=== PATIENT | male | born 1935 | race Caucasian/White ===

== ENCOUNTER 2018-06-13 10:51 | Emergency (ER) | payer MEDICARE ==
[~2018-06-13] VITALS: Ht 170.2 cm; Wt 90.7 kg
[~2018-06-13 10:51] MED LIST: ATOR10 PO; HYDCHL12.5; INSULANPEN; METF500C PO; Vitamin D400 UNI1; Zestril40 MG PO
[2018-06-13] MEDS ORDERED: Norco 5-325 Ta1 EACH PO (12:07)
== END 2018-06-13 12:14 | disposition home or self-care (01) ==
LOC: ER 10:51
DX: S22.42XA Multiple fractures of ribs, left side, initial encounter for closed fracture (principal); W01.198A Fall on same level from slipping, tripping and stumbling with subsequent striking against other object, initial encounter; Z88.5 Allergy status to narcotic agent; Z79.899 Other long term (current) drug therapy; Z79.84 Long term (current) use of oral hypoglycemic drugs; Z79.4 Long term (current) use of insulin; E11.9 Type 2 diabetes mellitus without complications; I10 Essential (primary) hypertension; Z87.891 Personal history of nicotine dependence
CPT/HCPCS: 71101; 99283-25

== ENCOUNTER 2018-09-02 05:15 | Emergency (ER) | payer MEDICARE ==
[~2018-09-02] VITALS: Ht 175.3 cm; Wt 90.7 kg
[~2018-09-02 05:15] MED LIST changes: +Norco 5-325 Ta1 EACH PO
[2018-09-02 05:50] LABS: Calcium, Ionized (POC) 1.16 mmol/L (1.10-1.46); Chloride (POC) 105 mmol/L (98-108); Creatinine (POC) 1.3 mg/dL (0.8-1.3); Glucose (ISTAT POC) 194 mg/dL (70-99); Hemoglobin (POC) 11.6 g/dL (13.5-17.5); Potassium (POC) 4.3 mmol/L (3.5-5.5); Sodium (POC) 140 mmol/L (135-148); Total CO2 (POC) 22 mmol/L (21-32)
[2018-09-02 05:59] LABS: BASOPHILS ABSOLUTE AUTO 0.08 K/mm3 (0.00-0.23); BASOPHILS PERCENT AUTO 1 % (0-2); EOSINOPHILS ABSOLUTE AUTO 0.37 K/mm3 (0.00-0.68); EOSINOPHILS PERCENT AUTO 3 % (0-6); Hematocrit 35.3 % (37.0-53.0); Hemoglobin 11.7 g/dL (13.5-17.5); IMMATURE GRAN PERCENT AUTO 2 % (0-1); LYMPHOCYTES ABSOLUTE AUTO 2.95 K/mm3 (0.84-5.20); LYMPHOCYTES PERCENT AUTO 22 % (21-46); MONOCYTES ABSOLUTE AUTO 1.08 K/mm3 (0.16-1.47); MONOCYTES PERCENT AUTO 8 % (4-13); Mean Corpuscular HGB 31.5 pg (26.0-34.0); Mean Corpuscular HGB Conc 33.1 g/dL (31.5-36.5); Mean Corpuscular Volume 95 fL (80-100); Mean Platelet Volume 11.4 fL (9.1-12.4); NEUTROPHILS ABSOLUTE AUTO 8.66 K/mm3 (1.96-9.15); NEUTROPHILS PERCENT AUTO 65 % (41-73); Platelet Count 149 K/mm3 (150-400); RDW Coefficient Variation 14.5 % (11.7-14.2); RDW Standard Deviation 48.5 fL (35.1-46.3); Red Blood Cell Count 3.72 M/mm3 (4.30-5.90); White Blood Cell Count 13.34 K/mm3 (4.00-11.30)
[2018-09-02] MEDS ORDERED: Lantus100 UNIT/1 SC (06:05)
[2018-09-02] MEDS ORDERED: Metformin HCl1000 MG PO (06:05)
[2018-09-02] MEDS ORDERED: Hydrochloroth12.5 MG PO (06:07)
[2018-09-02 06:20] LABS: Troponin I <0.015 ng/mL (0.000-0.040)
[2018-09-02 06:21] LABS: Alanine Aminotransfer (ALT/SGP 20 U/L (12-78); Albumin, Blood 3.7 g/dL (3.4-5.0); Albumin/Globulin Ratio 1.5 (0.8-1.8); Alk Phos 67 U/L (50-136); Anion Gap 9 mmol/L (6-16); Aspartate Aminotrans (AST/SGOT 16 U/L (12-37); Bilirubin, Total 0.7 mg/dL (0.1-1.0); Blood Urea Nitrogen 22 mg/dL (8-24); Bun/Creatinine Ratio 17.6 (12.0-20.0); CO2, Blood 22 mmol/L (21-32); Calcium, Blood 8.7 mg/dL (8.5-10.1); Chloride, Blood 109 mmol/L (98-108); Creatinine, Blood 1.25 mg/dL (0.60-1.20); Globulin, Blood 2.4 g/dL (2.2-4.0); Glomerular Filtration Rate 58 (60-); Glucose, Blood 188 mg/dL (70-99); Potassium, Blood 4.2 mmol/L (3.5-5.5); Sodium, Blood 140 mmol/L (136-145); Total Protein, Blood 6.1 g/dL (6.4-8.2)
[2018-09-02] MEDS ORDERED: FAMO20 PO (07:23)
[2018-09-02 07:50] LABS: Source, Urine Clean Catch
[2018-09-02 07:52] LABS: Bilirubin, Urine Neg (Neg); Blood, Urine 5+ (Neg); Glucose Qualitative, Urine Neg (Neg); Ketones, Urine 2+ (Neg); Leukocyte Esterase, Urine Neg (Neg); Nitrite, Urine Neg (Neg); Protein, Urine 2+ (Neg); Urobilinogen, Urine NORM (Normal)
[2018-09-02 08:04] LABS: Appearance, Urine Hazy (Clear); Color, Urine Yellow (P-Yellow)
[2018-09-02 08:05] LABS: Red Blood Cells, Urine TNTC /hpf (0-2); Squamous Epithelial Cells Few /hpf (Few); White Blood Cells, Urine Not Seen /hpf (0-5)
[2018-09-02 08:06] LABS: Bacteria Not Seen /hpf; Transitional Epithelial Cells Few /hpf ({null, 0-Rare})
[2018-09-02 08:07] LABS: Granular Casts 0-2 /lpf ({null, 0}); Renal Epithelial Rare /hpf ({null, 0-Rare})
[2018-09-02] MEDS ORDERED: Zofran4 MG PO (09:06)
[2018-09-02] MEDS ORDERED: HYDR1TAB94 PO (09:06)
[2018-09-02] MEDS ORDERED: KETO10 PO (09:06)
== END 2018-09-02 09:18 | disposition home or self-care (01) ==
LOC: ER 05:15
PROVIDERS: Emergency Medicine
DX: N13.2 Hydronephrosis with renal and ureteral calculous obstruction (principal); Z88.5 Allergy status to narcotic agent; Z79.899 Other long term (current) drug therapy; Z79.4 Long term (current) use of insulin; E11.9 Type 2 diabetes mellitus without complications; I10 Essential (primary) hypertension; Z87.891 Personal history of nicotine dependence
CPT/HCPCS: 71275; 74174; 80047; 80053; 81001; 82947; 83690; 84484; 85014; 85025; 93005; 93010; 96361; 96374-59; 96375-59; 99284-25; J1200; J1885; J2405; J7030; Q9967

== ENCOUNTER → 2020-09-04 | Outpatient (CLI) | payer MEDICARE ==
[~2020-09-04] MED LIST changes: +ASPIR 8181 M1 PO; -ATOR10 PO; +ATOR20 PO; +FAMO20 PO; +HYDR1TAB94 PO; +Hydrochloroth12.5 MG PO; +KETO10 PO; +Lantus100 UNIT/1 SC; +Metformin HCl1000 MG PO; +TRAM50 PO; +Zofran4 MG PO
== END | disposition home or self-care (01) ==
LOC: PLD 14:17 → LAB SHORT 14:17
DX: L28.1 Prurigo nodularis (principal)
CPT/HCPCS: 88305; 88312

== ENCOUNTER 2020-11-29 14:50 | Observation (INO) | payer MEDICARE ==
[~2020-11-29] VITALS: Ht 170.2 cm; Wt 92.0 kg
[~2020-11-29 14:50] MED LIST changes: -ASPIR 8181 M1 PO; -TRAM50 PO
[2020-11-29 15:24] LABS: BASOPHILS ABSOLUTE AUTO 0.05 K/mm3 (0.00-0.23); BASOPHILS PERCENT AUTO 1 % (0-2); EOSINOPHILS ABSOLUTE AUTO 0.21 K/mm3 (0.00-0.68); EOSINOPHILS PERCENT AUTO 3 % (0-6); Hematocrit 35.6 % (37.0-53.0); Hemoglobin 11.7 g/dL (13.5-17.5); IMMATURE GRAN ABSOLUTE AUTO 0.05 K/mm3 (0.00-0.10); IMMATURE GRAN PERCENT AUTO 1 % (0-1); LYMPHOCYTES ABSOLUTE AUTO 2.27 K/mm3 (0.84-5.20); LYMPHOCYTES PERCENT AUTO 33 % (21-46); MONOCYTES ABSOLUTE AUTO 0.71 K/mm3 (0.16-1.47); MONOCYTES PERCENT AUTO 10 % (4-13); Mean Corpuscular HGB 31.5 pg (26.0-34.0); Mean Corpuscular HGB Conc 32.9 g/dL (31.5-36.5); Mean Corpuscular Volume 96 fL (80-100); NEUTROPHILS ABSOLUTE AUTO 3.66 K/mm3 (1.96-9.15); NEUTROPHILS PERCENT AUTO 53 % (41-73); NRBC ABSOLUTE 0.02 K/mm3 (0.00-0.02); NRBC Auto 0.3 /100 WBC (0.0-0.2); Platelet Count 140 K/mm3 (150-400); RDW Coefficient Variation 17.2 % (11.7-14.2); RDW Standard Deviation 58.8 fL (35.1-46.3); Red Blood Cell Count 3.71 M/mm3 (4.30-5.90); White Blood Cell Count 6.95 K/mm3 (4.00-11.30)
[2020-11-29 15:48] LABS: Troponin I <0.015 ng/mL (0.000-0.040)
[2020-11-29 15:49] LABS: Alanine Aminotransfer (ALT/SGP 28 U/L (12-78); Albumin, Blood 3.8 g/dL (3.4-5.0); Albumin/Globulin Ratio 1.1 (0.8-1.8); Alk Phos 66 U/L (50-136); Anion Gap 6 mmol/L (6-16); Aspartate Aminotrans (AST/SGOT 11 U/L (12-37); Bilirubin, Total 0.5 mg/dL (0.1-1.0); Blood Urea Nitrogen 26 mg/dL (8-24); CO2, Blood 26 mmol/L (21-32); Calcium, Blood 9.4 mg/dL (8.5-10.1); Chloride, Blood 110 mmol/L (98-108); Creatinine, Blood 1.63 mg/dL (0.60-1.20); Globulin, Blood 3.6 g/dL (2.2-4.0); Glomerular Filtration Rate 43 (60-); Glucose, Blood 189 mg/dL (70-99); Sodium, Blood 142 mmol/L (136-145); Total Protein, Blood 7.4 g/dL (6.4-8.2)
[2020-11-29] MEDS ORDERED: TRAM50 PO (20:14)
--- NOTE | 2020-11-29 21:29 | NUR ---
BIOINFORMATICS PROGRAMMER GAVE INFORMATION TO LOOK IN CHART FOR ADMISSION TO PCU UNIT
--- NOTE | 2020-11-30 02:48 | NUR ---
PATIENT IS ALERT AND ORIENTATED, ABLE TO MAKE NEEDS KNOWN, ADMISSION FROM ED TONIGHT, DEMONSTRATED HOW TO USE CALL LIGHT, USES URINAL AT BEDSIDE, BED ALARM WAS INITIATED PATIENT REPORTED MULTIPLE FALLS AT HOME, PATIENT EXPRESSED HE DOESN'T WANT A BLOOD TRANSFUSION AND/OR BLOOD PRODUCTS IF NEEDED DECLINE TO CONSENT IS IN THE CHART, PATIENT HAS HIS RED FLIP CELL PHONE AT HE BEDSIDE, PANTS, BELT, SHOES, SOCKS ON THE CHAIR. PATIENT IS PLEASANT, FOLLOWS COMMANDS AND VERY ACTIVE IN HIS CARE, PROVIDES GREAT DETAIL IS DIABETES AND HOW HE FOLLOWS A VERY STRICT DIET. WILL CONTINUE TO MONITOR.
[2020-11-30 07:34] LABS: BASOPHILS ABSOLUTE AUTO 0.04 K/mm3 (0.00-0.23); BASOPHILS PERCENT AUTO 1 % (0-2); EOSINOPHILS ABSOLUTE AUTO 0.36 K/mm3 (0.00-0.68); EOSINOPHILS PERCENT AUTO 7 % (0-6); Hematocrit 32.4 % (37.0-53.0); IMMATURE GRAN ABSOLUTE AUTO 0.04 K/mm3 (0.00-0.10); IMMATURE GRAN PERCENT AUTO 1 % (0-1); LYMPHOCYTES ABSOLUTE AUTO 1.74 K/mm3 (0.84-5.20); LYMPHOCYTES PERCENT AUTO 34 % (21-46); MONOCYTES ABSOLUTE AUTO 0.64 K/mm3 (0.16-1.47); MONOCYTES PERCENT AUTO 13 % (4-13); Mean Corpuscular HGB 31.3 pg (26.0-34.0); Mean Corpuscular Volume 92 fL (80-100); NEUTROPHILS ABSOLUTE AUTO 2.24 K/mm3 (1.96-9.15); NEUTROPHILS PERCENT AUTO 44 % (41-73); RDW Coefficient Variation 17.1 % (11.7-14.2); RDW Standard Deviation 55.7 fL (35.1-46.3); Red Blood Cell Count 3.52 M/mm3 (4.30-5.90); White Blood Cell Count 5.06 K/mm3 (4.00-11.30)
[2020-11-30 07:36] LABS: Mean Platelet Volume 10.5 fL (9.1-12.4); Platelet Count 119 K/mm3 (150-400)
[2020-11-30 07:44] LABS: Bun/Creatinine Ratio 15.1 (12.0-20.0); Calcium, Blood 9.1 mg/dL (8.5-10.1); Creatinine, Blood 1.52 mg/dL (0.60-1.20); Potassium, Blood 4.1 mmol/L (3.5-5.5)
--- NOTE | 2020-11-30 12:46 | NUR ---
echocardiogram completed
--- NOTE | 2020-11-30 12:47 | NUR ---
echocardiogram completed
[2020-11-30] MEDS ORDERED: ASPIR 8181 M1 PO (14:06)
--- NOTE | 2020-11-30 14:23 | NUR ---
PT TO DISCHARGE HOME. NO NEW MEDS TO FAX. PT ON ASPIRIN AND WAS EDUCATED REGARDING IT. IV REMOVED NO SS OF INFECTION NOTED. PT TAKEN DOWN BY WC TO TO BE TAKEN HOME.
== END 2020-11-30 14:15 | disposition home or self-care (01) ==
LOC: ER 14:50 → PCU 14:51
PROVIDERS: Nurse Practitioner Acute Care; Physician Assistant; ADMIT Internal Medicine
DX: R07.89 Other chest pain (principal); I48.91 Unspecified atrial fibrillation; I48.92 Unspecified atrial flutter; R53.1 Weakness; R42 Dizziness and giddiness; I10 Essential (primary) hypertension; E78.5 Hyperlipidemia, unspecified; M25.511 Pain in right shoulder; E11.9 Type 2 diabetes mellitus without complications; D64.9 Anemia, unspecified; N28.9 Disorder of kidney and ureter, unspecified; Z88.5 Allergy status to narcotic agent; Z79.4 Long term (current) use of insulin; Z87.891 Personal history of nicotine dependence; Z66 Do not resuscitate
CPT/HCPCS: 36415; 70450; 71046; 80048; 80053; 82947; 83735; 83880; 84484; 85025; 93005; 93010; 93306; 93880; 96372; 97116; 97162; 97530; 99285-25; A9270; G0378; J1644

== ENCOUNTER 2021-05-10 09:58 | Emergency (ER) | payer MEDICARE ==
[~2021-05-10] VITALS: Ht 170.2 cm; Wt 89.8 kg
[~2021-05-10 09:58] MED LIST changes: +ASPIR 8181 M1 PO; +TRAM50 PO
[2021-05-10 11:22] LABS: BASOPHILS ABSOLUTE AUTO 0.04 K/mm3 (0.00-0.23); BASOPHILS PERCENT AUTO 0 % (0-2); EOSINOPHILS ABSOLUTE AUTO 0.01 K/mm3 (0.00-0.68); EOSINOPHILS PERCENT AUTO 0 % (0-6); Hematocrit 32.8 % (37.0-53.0); Hemoglobin 11.1 g/dL (13.5-17.5); IMMATURE GRAN ABSOLUTE AUTO 0.08 K/mm3 (0.00-0.10); IMMATURE GRAN PERCENT AUTO 1 % (0-1); LYMPHOCYTES ABSOLUTE AUTO 0.95 K/mm3 (0.84-5.20); LYMPHOCYTES PERCENT AUTO 8 % (21-46); MONOCYTES PERCENT AUTO 4 % (4-13); Mean Corpuscular HGB 32.8 pg (26.0-34.0); Mean Corpuscular HGB Conc 33.8 g/dL (31.5-36.5); Mean Corpuscular Volume 97 fL (80-100); Mean Platelet Volume 10.9 fL (9.1-12.4); NEUTROPHILS PERCENT AUTO 88 % (41-73); Platelet Count 120 K/mm3 (150-400); RDW Standard Deviation 52.2 fL (35.1-46.3); Red Blood Cell Count 3.38 M/mm3 (4.30-5.90); White Blood Cell Count 12.68 K/mm3 (4.00-11.30)
[2021-05-10 11:51] LABS: Alanine Aminotransfer (ALT/SGP 26 U/L (12-78); Albumin, Blood 3.5 g/dL (3.4-5.0); Albumin/Globulin Ratio 0.9 (0.8-1.8); Alk Phos 72 U/L (50-136); Anion Gap 8 mmol/L (6-16); Aspartate Aminotrans (AST/SGOT 13 U/L (12-37); Bilirubin, Total 0.8 mg/dL (0.1-1.0); Blood Urea Nitrogen 39 mg/dL (8-24); Bun/Creatinine Ratio 22.8 (12.0-20.0); CO2, Blood 24 mmol/L (21-32); Calcium, Blood 9.8 mg/dL (8.5-10.1); Chloride, Blood 104 mmol/L (98-108); Creatinine, Blood 1.71 mg/dL (0.60-1.20); Globulin, Blood 4.1 g/dL (2.2-4.0); Glomerular Filtration Rate 38 (60-); Glucose, Blood 235 mg/dL (70-99); Potassium, Blood 4.2 mmol/L (3.5-5.5); Sodium, Blood 136 mmol/L (136-145); Total Protein, Blood 7.6 g/dL (6.4-8.2); Troponin I <0.015 ng/mL (0.000-0.040)
[2021-05-10 12:01] LABS: Influenza A, PCR NEGATIVE (NEGATIVE); Influenza B, PCR NEGATIVE (NEGATIVE); Resp Syncytial Virus, PCR NEGATIVE (NEGATIVE); SARS-Cov-2 (COVID-19) PCR, MMC NEGATIVE (NEGATIVE)
== END 2021-05-10 14:35 | disposition home or self-care (01) ==
LOC: ER 09:58
PROVIDERS: Emergency Medicine
DX: R07.9 Chest pain, unspecified (principal); Z88.5 Allergy status to narcotic agent; Z79.899 Other long term (current) drug therapy; Z79.4 Long term (current) use of insulin; Z79.82 Long term (current) use of aspirin; E11.9 Type 2 diabetes mellitus without complications; I10 Essential (primary) hypertension; I48.91 Unspecified atrial fibrillation; Z87.891 Personal history of nicotine dependence; Z20.822 Contact with and (suspected) exposure to COVID-19
CPT/HCPCS: 0241U; 36415; 71260; 74160; 80053; 84484; 85025; 93005; 93010; 99284-25; J7120; Q9967

== ENCOUNTER 2021-12-01 07:15 | Emergency (ER) | payer MEDICARE ==
[~2021-12-01] VITALS: Ht 170.2 cm; Wt 80.3 kg
[~2021-12-01 07:15] MED LIST changes: +ELIQUIS5 M2; +METFORMIN ER1000 M2; +METO25ER PO
[2021-12-01] MEDS ORDERED: LISI5 PO (08:29)
[2021-12-01] MEDS ORDERED: INSULANI SC (08:29)
[2021-12-01] MEDS ORDERED: METOPROLOL SUCC25 MG PO (08:29)
[2021-12-01] MEDS ORDERED: METFORMIN HCL500 M3 PO (08:29)
[2021-12-01 08:51] LABS: BASOPHILS ABSOLUTE AUTO 0.04 K/mm3 (0.00-0.23); BASOPHILS PERCENT AUTO 1 % (0-2); EOSINOPHILS PERCENT AUTO 2 % (0-6); Hematocrit 28.9 % (37.0-53.0); Hemoglobin 9.5 g/dL (13.5-17.5); IMMATURE GRAN ABSOLUTE AUTO 0.07 K/mm3 (0.00-0.10); IMMATURE GRAN PERCENT AUTO 2 % (0-1); LYMPHOCYTES ABSOLUTE AUTO 1.05 K/mm3 (0.84-5.20); LYMPHOCYTES PERCENT AUTO 22 % (21-46); MONOCYTES ABSOLUTE AUTO 0.48 K/mm3 (0.16-1.47); MONOCYTES PERCENT AUTO 10 % (4-13); Mean Corpuscular HGB 34.2 pg (26.0-34.0); Mean Corpuscular HGB Conc 32.9 g/dL (31.5-36.5); Mean Corpuscular Volume 104 fL (80-100); Mean Platelet Volume 11.3 fL (9.1-12.4); NEUTROPHILS ABSOLUTE AUTO 2.95 K/mm3 (1.96-9.15); NEUTROPHILS PERCENT AUTO 63 % (41-73); Platelet Count 107 K/mm3 (150-400); RDW Coefficient Variation 15.9 % (11.7-14.2); Red Blood Cell Count 2.78 M/mm3 (4.30-5.90); White Blood Cell Count 4.69 K/mm3 (4.00-11.30)
[2021-12-01 09:12] LABS: Albumin, Blood 3.2 g/dL (3.4-5.0); Albumin/Globulin Ratio 0.8 (0.8-1.8); Bilirubin, Total 0.5 mg/dL (0.1-1.0); Bun/Creatinine Ratio 16.2 (12.0-20.0); Calcium, Blood 10.2 mg/dL (8.5-10.1); Creatinine, Blood 1.54 mg/dL (0.60-1.20); Globulin, Blood 4.1 g/dL (2.2-4.0); Potassium, Blood 4.2 mmol/L (3.5-5.5); Total Protein, Blood 7.3 g/dL (6.4-8.2)
[2021-12-01 09:46] LABS: Source, Urine Clean Catch
[2021-12-01 10:09] LABS: Appearance, Urine Clear (Clear); Bilirubin, Urine Neg (Neg); Blood, Urine Neg (Neg); Color, Urine Yellow (P-Yellow); Glucose Qualitative, Urine Neg (Neg); Ketones, Urine Neg (Neg); Leukocyte Esterase, Urine Neg (Neg); Nitrite, Urine Neg (Neg); Protein, Urine 1+ (Neg); Urobilinogen, Urine NORM (Normal)
[2021-12-01] MEDS ORDERED: OXYC5 PO (10:29)
== END 2021-12-01 10:38 | disposition home or self-care (01) ==
LOC: ER 07:15
PROVIDERS: Emergency Medicine
DX: R07.89 Other chest pain (principal); E11.9 Type 2 diabetes mellitus without complications; I10 Essential (primary) hypertension; Z87.891 Personal history of nicotine dependence; Z79.899 Other long term (current) drug therapy; Z79.4 Long term (current) use of insulin
CPT/HCPCS: 36415; 74177; 80053; 83690; 85025; J2405; J3010; Q9967

== ENCOUNTER 2021-12-10 14:25 | Emergency (ER) | payer MEDICARE ==
[~2021-12-10] VITALS: Ht 170.2 cm; Wt 80.3 kg
[~2021-12-10 14:25] MED LIST changes: +INSULANI SC; +LISI5 PO; +METFORMIN HCL500 M3 PO; +METOPROLOL SUCC25 MG PO; +OXYC5 PO
[2021-12-10] MEDS ORDERED: OXYC5 PO (16:58)
== END 2021-12-10 17:38 | disposition home or self-care (01) ==
LOC: ER 14:25
DX: M54.50 Low back pain, unspecified (principal); S50.01XA Contusion of right elbow, initial encounter; W06.XXXA Fall from bed, initial encounter; E11.9 Type 2 diabetes mellitus without complications; I10 Essential (primary) hypertension; Z87.891 Personal history of nicotine dependence
CPT/HCPCS: 70450; 72125; 72128; 72131; 73080; 99284-25

== ENCOUNTER 2021-12-17 06:00 | Emergency (ER) | payer MEDICARE ==
[~2021-12-17] VITALS: Ht 172.7 cm; Wt 90.7 kg
[2021-12-17 10:09] LABS: Source, Urine Straight Cath
[2021-12-17 10:13] LABS: Bilirubin, Urine Neg (Neg); Blood, Urine 1+ (Neg); Glucose Qualitative, Urine 3+ (Neg); Ketones, Urine 2+ (Neg); Leukocyte Esterase, Urine Neg (Neg); Nitrite, Urine Neg (Neg); Protein, Urine 2+ (Neg); Specific Gravity, Urine 1.025 (1.003-1.022); Urobilinogen, Urine NORM (Normal)
[2021-12-17 10:20] LABS: Appearance, Urine Hazy (Clear); Bacteria Not Seen /hpf; Color, Urine Yellow (P-Yellow); Red Blood Cells, Urine 0-2 /hpf (0-2); Squamous Epithelial Cells Rare /hpf (Few); White Blood Cells, Urine Not Seen /hpf (0-5)
== END 2021-12-17 11:12 | disposition home or self-care (01) ==
LOC: ER 06:00
PROVIDERS: Student in an Organized Health Care Education/Training Program
DX: S09.90XA Unspecified injury of head, initial encounter (principal); S50.01XA Contusion of right elbow, initial encounter; R39.15 Urgency of urination; R10.2 Pelvic and perineal pain; E11.9 Type 2 diabetes mellitus without complications; I10 Essential (primary) hypertension; F03.90 Unspecified dementia, unspecified severity, without behavioral disturbance, psychotic disturbance, mood disturbance, and anxiety; W18.30XA Fall on same level, unspecified, initial encounter; Z88.5 Allergy status to narcotic agent; Z88.8 Allergy status to other drugs, medicaments and biological substances; Z79.4 Long term (current) use of insulin; Z79.899 Other long term (current) drug therapy
CPT/HCPCS: 70450; 73070; 81001

== ENCOUNTER 2021-12-18 14:57 | Inpatient (IN) | payer MEDICARE ==
[~2021-12-18] VITALS: Ht 177.8 cm; Wt 79.4 kg
[2021-12-18 17:45] LABS: BASOPHILS ABSOLUTE AUTO 0.05 K/mm3 (0.00-0.23); BASOPHILS PERCENT AUTO 1 % (0-2); EOSINOPHILS ABSOLUTE AUTO 0.03 K/mm3 (0.00-0.68); EOSINOPHILS PERCENT AUTO 0 % (0-6); Hematocrit 27.9 % (37.0-53.0); Hemoglobin 9.5 g/dL (13.5-17.5); IMMATURE GRAN ABSOLUTE AUTO 0.16 K/mm3 (0.00-0.10); IMMATURE GRAN PERCENT AUTO 2 % (0-1); LYMPHOCYTES ABSOLUTE AUTO 1.14 K/mm3 (0.84-5.20); LYMPHOCYTES PERCENT AUTO 14 % (21-46); MONOCYTES ABSOLUTE AUTO 0.53 K/mm3 (0.16-1.47); MONOCYTES PERCENT AUTO 7 % (4-13); Mean Corpuscular HGB 34.8 pg (26.0-34.0); Mean Corpuscular HGB Conc 34.1 g/dL (31.5-36.5); Mean Corpuscular Volume 102 fL (80-100); Mean Platelet Volume 12.4 fL (9.1-12.4); NEUTROPHILS ABSOLUTE AUTO 6.14 K/mm3 (1.96-9.15); NEUTROPHILS PERCENT AUTO 76 % (41-73); NRBC ABSOLUTE 0.04 K/mm3 (0.00-0.02); NRBC Auto 0.5 /100 WBC (0.0-0.2); Platelet Count 110 K/mm3 (150-400); RDW Coefficient Variation 15.9 % (11.7-14.2); RDW Standard Deviation 55.9 fL (35.1-46.3); Red Blood Cell Count 2.73 M/mm3 (4.30-5.90); White Blood Cell Count 8.05 K/mm3 (4.00-11.30)
[2021-12-18 18:09] LABS: Albumin, Blood 3.1 g/dL (3.4-5.0); Albumin/Globulin Ratio 0.7 (0.8-1.8); Bilirubin, Total 0.9 mg/dL (0.1-1.0); Bun/Creatinine Ratio 24.2 (12.0-20.0); Creatinine, Blood 1.24 mg/dL (0.60-1.20); Globulin, Blood 4.6 g/dL (2.2-4.0); Total Protein, Blood 7.7 g/dL (6.4-8.2)
[2021-12-18 18:29] LABS: Influenza A, PCR NEGATIVE (NEGATIVE); Influenza B, PCR NEGATIVE (NEGATIVE); Resp Syncytial Virus, PCR NEGATIVE (NEGATIVE); SARS-Cov-2 (COVID-19) PCR, MMC NEGATIVE (NEGATIVE)
--- NOTE | 2021-12-19 04:26 | NUR ---
SHIFT SUMMARY A/O TO SELF ONLY. ATTEMPTING TO GET OUT OF BED, KEI RESTRAINT IN PLACE FOR SAFETY. 1 LG BM THIS SHIFT. CURRENTLY BEDREST D/T EXTREME WEAKNESS AND DIFFICULTY WITH FOLLOWING DIRECTIONS. NS RUNNING AT 75 ML/HR. VSS, BED IN LOWEST POSITION WITH CALL LIGHT IN REACH. WILL CONTINUE TO MONITOR AND REPORT TO ONCOMING RN.
[2021-12-19 04:51] LABS: BASOPHILS ABSOLUTE AUTO 0.04 K/mm3 (0.00-0.23); BASOPHILS PERCENT AUTO 0 % (0-2); EOSINOPHILS ABSOLUTE AUTO 0.01 K/mm3 (0.00-0.68); EOSINOPHILS PERCENT AUTO 0 % (0-6); Hemoglobin 10.1 g/dL (13.5-17.5); IMMATURE GRAN ABSOLUTE AUTO 0.18 K/mm3 (0.00-0.10); IMMATURE GRAN PERCENT AUTO 2 % (0-1); LYMPHOCYTES ABSOLUTE AUTO 0.95 K/mm3 (0.84-5.20); LYMPHOCYTES PERCENT AUTO 10 % (21-46); MONOCYTES ABSOLUTE AUTO 0.69 K/mm3 (0.16-1.47); MONOCYTES PERCENT AUTO 7 % (4-13); Mean Corpuscular HGB 34.4 pg (26.0-34.0); Mean Corpuscular HGB Conc 33.7 g/dL (31.5-36.5); Mean Corpuscular Volume 102 fL (80-100); Mean Platelet Volume 11.7 fL (9.1-12.4); NEUTROPHILS ABSOLUTE AUTO 7.67 K/mm3 (1.96-9.15); NEUTROPHILS PERCENT AUTO 80 % (41-73); NRBC ABSOLUTE 0.03 K/mm3 (0.00-0.02); NRBC Auto 0.3 /100 WBC (0.0-0.2); Platelet Count 122 K/mm3 (150-400); RDW Coefficient Variation 15.7 % (11.7-14.2); RDW Standard Deviation 55.7 fL (35.1-46.3); Red Blood Cell Count 2.94 M/mm3 (4.30-5.90); White Blood Cell Count 9.54 K/mm3 (4.00-11.30)
[2021-12-19 05:14] LABS: Albumin, Blood 3.2 g/dL (3.4-5.0); Albumin/Globulin Ratio 0.7 (0.8-1.8); Bun/Creatinine Ratio 24.8 (12.0-20.0); Calcium, Blood 10.6 mg/dL (8.5-10.1); Creatinine, Blood 1.21 mg/dL (0.60-1.20); Globulin, Blood 4.6 g/dL (2.2-4.0); Potassium, Blood 4.2 mmol/L (3.5-5.5); Total Protein, Blood 7.8 g/dL (6.4-8.2)
--- NOTE | 2021-12-19 11:30 | NUR ---
Supportive visit this AM. Pt resting in bed with his eyes closed upon arrival. Pt wakes to moderate level of verbal stimuli and gentle touch. Pt is A&OX1. Pt struggles with keeping his eyes opened. Pt denies pain and dyspnea at this time. Spoke with Primary RN Tee and discussed case. Spoke with Dr Coronado and discussed case. Dr Coronado will contact family to review plan of care. Palliative Care will F/U with family later today after initial discussion with family from Dr Coronado.
[2021-12-19 14:04] LABS: Alanine Aminotransfer (ALT/SGP 22 U/L (12-78); Albumin, Blood 3.3 g/dL (3.4-5.0); Albumin/Globulin Ratio 0.7 (0.8-1.8); Alk Phos 115 U/L (50-136); Anion Gap 8 mmol/L (6-16); Aspartate Aminotrans (AST/SGOT 13 U/L (12-37); Bilirubin, Total 0.9 mg/dL (0.1-1.0); Blood Urea Nitrogen 28 mg/dL (8-24); Bun/Creatinine Ratio 23.3 (12.0-20.0); CO2, Blood 25 mmol/L (21-32); Calcium, Blood 10.3 mg/dL (8.5-10.1); Chloride, Blood 102 mmol/L (98-108); Glomerular Filtration Rate 58 (60-); Glucose, Blood 340 mg/dL (70-99); Potassium, Blood 4.1 mmol/L (3.5-5.5); Prostate Specific Antigen 0.273 ng/mL (0.000-4.000); Sodium, Blood 135 mmol/L (136-145); Total Protein, Blood 8.3 g/dL (6.4-8.2)
--- NOTE | 2021-12-19 17:50 | NUR ---
SHIFT SUMMARY PATIENT IS ALERT AND ORIENTED TO SELF ONLY. PATIENT HAS NOT HAD ANY ACUTE EVENTS THIS SHIFT. VITAL SIGNS REVIEWED. PATIENT HAS BEEN RESTING MOST OF THE SHIFT. PATIENTS FAMILY HAS VISITED THIS SHIFT. PATIENT HAS BEEN IN RESTRAINTS DUE TO SAFETY. PATIENT HAS NOT COMPLAINED OF PAIN, NAUSA, VOMITTING OR SOB. PATIENT IS IN BED, LOWEST AND LOCKED POSITION. CALL LIGHT IN PLACE. WILL MONITOR UNTIL SHIFT CHANGE.
[2021-12-20 05:07] LABS: BASOPHILS ABSOLUTE AUTO 0.02 K/mm3 (0.00-0.23); BASOPHILS PERCENT AUTO 0 % (0-2); EOSINOPHILS ABSOLUTE AUTO 0.04 K/mm3 (0.00-0.68); EOSINOPHILS PERCENT AUTO 0 % (0-6); Hematocrit 29.5 % (37.0-53.0); Hemoglobin 9.9 g/dL (13.5-17.5); IMMATURE GRAN ABSOLUTE AUTO 0.14 K/mm3 (0.00-0.10); IMMATURE GRAN PERCENT AUTO 1 % (0-1); LYMPHOCYTES ABSOLUTE AUTO 1.58 K/mm3 (0.84-5.20); LYMPHOCYTES PERCENT AUTO 15 % (21-46); MONOCYTES ABSOLUTE AUTO 0.74 K/mm3 (0.16-1.47); MONOCYTES PERCENT AUTO 7 % (4-13); Mean Corpuscular HGB Conc 33.6 g/dL (31.5-36.5); Mean Corpuscular Volume 101 fL (80-100); Mean Platelet Volume 12.1 fL (9.1-12.4); NEUTROPHILS ABSOLUTE AUTO 7.94 K/mm3 (1.96-9.15); NEUTROPHILS PERCENT AUTO 76 % (41-73); NRBC ABSOLUTE 0.03 K/mm3 (0.00-0.02); NRBC Auto 0.3 /100 WBC (0.0-0.2); Platelet Count 124 K/mm3 (150-400); RDW Coefficient Variation 15.7 % (11.7-14.2); RDW Standard Deviation 55.2 fL (35.1-46.3); Red Blood Cell Count 2.91 M/mm3 (4.30-5.90); White Blood Cell Count 10.46 K/mm3 (4.00-11.30)
[2021-12-20 06:06] LABS: Albumin, Blood 3.1 g/dL (3.4-5.0); Anion Gap 8 mmol/L (6-16); Blood Urea Nitrogen 32 mg/dL (8-24); Bun/Creatinine Ratio 22.9 (12.0-20.0); CO2, Blood 24 mmol/L (21-32); Calcium, Blood 10.1 mg/dL (8.5-10.1); Chloride, Blood 101 mmol/L (98-108); Glomerular Filtration Rate 48 (60-); Glucose, Blood 296 mg/dL (70-99); Phosphorus, Blood 2.5 mg/dL (2.5-4.9); Potassium, Blood 3.9 mmol/L (3.5-5.5); Sodium, Blood 133 mmol/L (136-145)
--- NOTE | 2021-12-20 06:23 | NUR ---
SHIFT SUMMARY: PT IS A/OX SELF. HE REMAINS IN THE KEI VEST AND 4 RAILS FOR SAFETY. THE ORDER WAS RENEWED AT MIDNIGHT. HE DID PULL OUT AN IV, AND AN ORDER WAS PUT IN FOR NO IV ACCESS. THE PATIENT WAS REPOSITIONED FREQUENTLY AND WE'LL CONTINUE TO MONITOR.
--- NOTE | 2021-12-20 17:26 | NUR ---
SHIFT SUMMARY: PT A/O X 1, DID NOT GET OOB TODAY. PT/OT ATTEMPTED TO WORK WITH PT THIS MORNING BUT HE WAS SLEEPING. AGAIN IN THE AFTERNOON HE WAS SLEEPING. PT WAS AWAKE FOR BREAKFAST AND THROUGH LUNCH. HE WAS HAVING PAIN IN LOWER BACK CAUSING HIM TO WINCE IN PAIN WITH ANY MOVEMENT. TYLENOL WAS INEFFECTIVE BUT NORCO WAS EFFECTIVE IN TREATING PAIN. PT HAS BEEN NAPPING OFF AND ON SINCE AFTER LUNCH BUT AWAKENS EASILY TO VERBAL STIMULI. PT DID HAVE VISIT WITH AND FRIEND THIS MORNING. PT HAS BEEN OUT OF RESTRAINTS SINCE 1000 AND HAS BEEN PLEASANT AND COOPERATIVE WITH CARE THROUGHOUT THE SHIFT. PT RESTING WITH EYES SHUT RR E/U AT THIS TIME. NO ACUTE CONCERNS AT THIS TIME.
[2021-12-20] MEDS ORDERED: FAMO20 PO (23:43)
--- NOTE | 2021-12-21 04:35 | NUR ---
SHIFT SUMMARY: PT IS A/OXSELF. HE IS EKLUTNA, BUT AROUSES TO VOICE AND TOUCH. HE DOES HAVE BACK PAIN, BUT HAS NOT NEEDED ANY PAIN MEDS. THERE IS PRN NORCO IS PT IS PAINFUL. MEREDITH CARE AND REPOSITIONING HAVE BEEN DONE AND A MEPILEX DRESSING TO HIS COCCYX IS CDI. HE HAS NO IV--MD AWARE. THE BED IS IN THE LOWEST POSITION AND THE ALARM IS ON THE MEDIUM SETTING FOR PATIENT SAFETY.
[2021-12-21 04:58] LABS: BASOPHILS ABSOLUTE AUTO 0.03 K/mm3 (0.00-0.23); BASOPHILS PERCENT AUTO 0 % (0-2); EOSINOPHILS ABSOLUTE AUTO 0.03 K/mm3 (0.00-0.68); EOSINOPHILS PERCENT AUTO 0 % (0-6); Hematocrit 27.5 % (37.0-53.0); Hemoglobin 9.4 g/dL (13.5-17.5); IMMATURE GRAN ABSOLUTE AUTO 0.24 K/mm3 (0.00-0.10); IMMATURE GRAN PERCENT AUTO 2 % (0-1); LYMPHOCYTES ABSOLUTE AUTO 1.34 K/mm3 (0.84-5.20); LYMPHOCYTES PERCENT AUTO 12 % (21-46); MONOCYTES PERCENT AUTO 7 % (4-13); Mean Corpuscular HGB 34.3 pg (26.0-34.0); Mean Corpuscular HGB Conc 34.2 g/dL (31.5-36.5); Mean Corpuscular Volume 100 fL (80-100); Mean Platelet Volume 11.9 fL (9.1-12.4); NEUTROPHILS ABSOLUTE AUTO 9.01 K/mm3 (1.96-9.15); NEUTROPHILS PERCENT AUTO 79 % (41-73); NRBC ABSOLUTE 0.03 K/mm3 (0.00-0.02); NRBC Auto 0.3 /100 WBC (0.0-0.2); Platelet Count 124 K/mm3 (150-400); RDW Coefficient Variation 15.8 % (11.7-14.2); RDW Standard Deviation 55.2 fL (35.1-46.3); Red Blood Cell Count 2.74 M/mm3 (4.30-5.90); White Blood Cell Count 11.45 K/mm3 (4.00-11.30)
[2021-12-21 05:42] LABS: Albumin, Blood 2.8 g/dL (3.4-5.0); Anion Gap 9 mmol/L (6-16); Blood Urea Nitrogen 38 mg/dL (8-24); Bun/Creatinine Ratio 22.2 (12.0-20.0); CO2, Blood 25 mmol/L (21-32); Calcium, Blood 10.7 mg/dL (8.5-10.1); Chloride, Blood 100 mmol/L (98-108); Creatinine, Blood 1.71 mg/dL (0.60-1.20); Glomerular Filtration Rate 38 (60-); Glucose, Blood 179 mg/dL (70-99); Phosphorus, Blood 3.2 mg/dL (2.5-4.9); Potassium, Blood 3.7 mmol/L (3.5-5.5); Sodium, Blood 134 mmol/L (136-145)
[2021-12-21 13:07] LABS: Percent Saturation 32.6 % (20.0-50.0)
--- NOTE | 2021-12-21 16:33 | NUR ---
Pt resting in bed with his eyes closed. Pt responds to moderate level verbal stimuli but struggles with waking completly. Pt appears weak and lethargic. Ended visit to allow Pt to rest. Spoke with Dr Johnson and discussed case. Waiting on further test results but likely Pt may benefit from consideration of hospice. Hospice briefly brought up during his conversation with son. Called and spoke with Pt's spouse Pat over the phone. At this time Pat appears unwilling to engage in conversation and states "we don't know for sure what's going on yet". She reports plan for her and son to visit in the morning. Palliative Care will remain available for supportive and therapeutic visits.
--- NOTE | 2021-12-21 19:18 | NUR ---
SHIFT SUMMARY- PT ALERT TO SELF AND FAMILY. PT HAS REMAINED LETHARGIC T/O THE SHIFT DR AND FAMILY ARE AWARE. PER DR VILLELA THE FAMILY ARE READY TO DISCUSS POSSIBLE HOSPICE FOR THE PT. CALLED AND SPOKE TO KEVIN Cortez OF PALLIATIVE CARE ABOUT IT. PALLIATIVE CARE ARE AWARE AND CONSULTED. PT WOKE FOR HIS FIRST DOSE OF LACTULOSE AND WAS WILLING AND ABLE TO TAKE IT. PT HAS HAD SOME BACK PAIN THAT SEEMED WELL MANAGED WITH NORCO. PT APEARED TO BE HAVING PAIN AGAIN AT THE TIME OF BEDSIDE REPORT, NIGHT RN TO MEDICATE.
[2021-12-22 00:08] LABS: A/G RATIO 1.1 (0.7-1.7); ALBUMIN 3.6 g/dL (2.9-4.4); ALPHA-1-GLOBULIN 0.3 g/dL (0.0-0.4); ALPHA-2-GLOBULIN 0.7 g/dL (0.4-1.0); BETA GLOBULIN 0.9 g/dL (0.7-1.3); GAMMA GLOBULIN 1.6 g/dL (0.4-1.8); GLOBULIN, TOTAL 3.4 g/dL (2.2-3.9); IMMUNOGLOBULIN A, QN, SERUM 1717 mg/dL (61-437); IMMUNOGLOBULIN G, QN, SERUM 191 mg/dL (603-1613); IMMUNOGLOBULIN M, QN, SERUM 11 mg/dL (15-143); M-SPIKE 1.3 g/dL (Not Observed)
--- NOTE | 2021-12-22 06:05 | NUR ---
SUMMARY PT HAS REMAINED IN BED. PT REPOSITIONED FREQUENTLY. PT HAS SOME LOOSE STOOLS NOTED. PT HAS BEEN VOIDING WELL. PT IS VERY SOMNOLENT AND HAS BEEN MOSTLY SLEEEPING DURING SHIFT. NO NEW ISSUES NOTED. CALL LIGHT IN REACH AND BED ALARM ON.
[2021-12-22 06:37] LABS: BASOPHILS ABSOLUTE AUTO 0.05 K/mm3 (0.00-0.23); BASOPHILS PERCENT AUTO 1 % (0-2); EOSINOPHILS ABSOLUTE AUTO 0.03 K/mm3 (0.00-0.68); EOSINOPHILS PERCENT AUTO 0 % (0-6); Hematocrit 27.7 % (37.0-53.0); Hemoglobin 9.4 g/dL (13.5-17.5); IMMATURE GRAN ABSOLUTE AUTO 0.43 K/mm3 (0.00-0.10); IMMATURE GRAN PERCENT AUTO 4 % (0-1); LYMPHOCYTES ABSOLUTE AUTO 0.99 K/mm3 (0.84-5.20); LYMPHOCYTES PERCENT AUTO 10 % (21-46); MONOCYTES ABSOLUTE AUTO 0.45 K/mm3 (0.16-1.47); MONOCYTES PERCENT AUTO 5 % (4-13); Mean Corpuscular HGB 35.2 pg (26.0-34.0); Mean Corpuscular HGB Conc 33.9 g/dL (31.5-36.5); Mean Corpuscular Volume 104 fL (80-100); NEUTROPHILS ABSOLUTE AUTO 7.94 K/mm3 (1.96-9.15); NEUTROPHILS PERCENT AUTO 80 % (41-73); NRBC ABSOLUTE 0.03 K/mm3 (0.00-0.02); NRBC Auto 0.3 /100 WBC (0.0-0.2); Platelet Count 123 K/mm3 (150-400); RDW Coefficient Variation 16.2 % (11.7-14.2); RDW Standard Deviation 57.9 fL (35.1-46.3); Red Blood Cell Count 2.67 M/mm3 (4.30-5.90); White Blood Cell Count 9.89 K/mm3 (4.00-11.30)
[2021-12-22 07:10] LABS: Albumin, Blood 2.8 g/dL (3.4-5.0); Albumin/Globulin Ratio 0.6 (0.8-1.8); Bilirubin, Direct 0.3 mg/dL (0.0-0.3); Bilirubin, Indirect 0.4 mg/dL (0.1-0.7); Bilirubin, Total 0.7 mg/dL (0.1-1.0); Bun/Creatinine Ratio 21.8 (12.0-20.0); Calcium, Blood 11.2 mg/dL (8.5-10.1); Creatinine, Blood 1.42 mg/dL (0.60-1.20); Globulin, Blood 4.4 g/dL (2.2-4.0); Phosphorus, Blood 3.4 mg/dL (2.5-4.9); Potassium, Blood 3.9 mmol/L (3.5-5.5); Total Protein, Blood 7.2 g/dL (6.4-8.2)
--- NOTE | 2021-12-22 15:55 | NUR ---
Placed a call to pt's son Cas Carvajal, he states he was told by Dr. Johnson today the pt does have Multiple Myeloma. Cas Carvajal. states he has already spoken at length to his family, including his father in the recent past, and knows what he wanted done should this kind of situation arise. He elected to place the pt on comfort care, and Dr. Johnson approves. Cas Carvajal states his dad has been in "severe pain all the time" since the symptoms began. I assured him we will treat pain aggressively, as comfort is the goal in "comfort care". Son states knowing we'll be focused on comfort for his dad is exactly what he needed to hear today. The bedside RN Debra is aware of the plan, and awaiting new orders.
--- NOTE | 2021-12-22 16:58 | NUR ---
SHIFT SUMMARY- PT SLEEPING OFTEN THROUGHOUT SHIFT. PT DOES AROUSE WHEN SPOKE TO. PT PAINBFUL WHEN REPOSITIONED, MEDICATED PER EMAR. PT NOW, CC. WILL MONITOR AND TREATED PT PER EMAR. PT RESTING NOW WITH SIDE RAILS UP AND CALL LIGHT IN REACH.
--- NOTE | 2021-12-23 04:36 | NUR ---
SHIFT SUMMARY: PT REMAINED IN BED DURING THE NOC SHIFT. HE WAS ABLE TO CALL OUT FOR SOME OF HIS NEEDS, BUT DOES NOT USE THE CALL BUTTON. LYING DOWN FLAT HE HAS SOME SECRETIONS AND WAS GIVEN SOME ATROPINE DROPS THAT HELP. HE DOES HAVE OTHER COMFORT MEASURES IN THE EMAR. THE ORDER FOR COMF[facility] CARE NEEDS TO BE ADDRESSED, [facility] THE BED IS ALARM IS SET AND WE WILL CONTINUE TO MONITOR FREQUENTLY.
--- NOTE | 2021-12-23 08:41 | NUR ---
PT APPETITE BETTER TODAY. PT ATE 3/4 APPLESAUCE CUP EAGERLY.
--- NOTE | 2021-12-23 17:30 | NUR ---
SHIFT SUMMARY- PT ON COMFORT CARE. PT WITH FAMILY IN ROOM AT BEDSIDE. PT REDUCED FACE GRIMACE WITH REPOSITIONING THROUGH PAIN MANAGEMENT, SEE EMAR. PT ATE ONE APPLESAUCE THROUGHOUT SHIFT. PT SLEPT THROUGHOUT SHIFT. PT RESTING NOW WITH CALL LIGHT IN REACH, SIDE RAILS UP, AND BED ALARM ON.
--- NOTE | 2021-12-24 03:55 | NUR ---
SHIFT SUMMARY PT ON COMFORT CARE. PT CONTINUES TO GET ROXINOL AND FENTANYL NEEDED FOR AIR HUNGER AND PAIN. PT HAS BEEN SLEEPING MUCH OF THE SHIFT. PT HAS SCOPALAMINE PATCH BEHIND HIS L EAR AND HAS ORDER FOR ATROPINE DROPS TO HELP WITH SECRETIONS. PT APPEARS COMFORTABLE AT THIS TIME.
--- NOTE | 2021-12-24 09:00 | NUR ---
pt was given roxinol by charge chey, at bedside, he is snoring, looks very comfortable, Dr. Leggett in to see him, no changes, call light in reach.
--- NOTE | 2021-12-24 15:26 | NUR ---
Met with pt's at bedside. She became tearful the moment we began to talk. The pt appears to be actively dying, and it no longer appears appropriate to transfer him at this time. His reminisced about the 70 years they've been together, and I listened. The pt's breathing is moist, noisy and even. His eyes are closed, mouth is open. He appears to be imminent and does recognize this. Palliative care will remain available.
--- NOTE | 2021-12-24 18:30 | NUR ---
Pt came out and states her just passed, no heart rate or resp found at 1825 notified nursing super, charge nurse and Dr. Leggett.
== END 2021-12-24 18:25 | DRG 840 ==
LOC: ER 14:57 → SURS 14:58 → MEDS 14:58 → ER 14:58 → MEDS 14:58 → SURS 22:14 → MEDS 12-21 15:38
PROVIDERS: Emergency Medicine; Family Medicine; Hospitalist; ADMIT Internal Medicine
DX: C90.00 Multiple myeloma not having achieved remission (principal); G93.41 Metabolic encephalopathy; I48.92 Unspecified atrial flutter; I48.19 Other persistent atrial fibrillation; C79.51 Secondary malignant neoplasm of bone; M84.48XA Pathological fracture, other site, initial encounter for fracture; E87.1 Hypo-osmolality and hyponatremia; N17.9 Acute kidney failure, unspecified; Z66 Do not resuscitate; Z51.5 Encounter for palliative care; Z20.822 Contact with and (suspected) exposure to COVID-19; E83.52 Hypercalcemia; E86.0 Dehydration; F03.90 Unspecified dementia, unspecified severity, without behavioral disturbance, psychotic disturbance, mood disturbance, and anxiety; E78.5 Hyperlipidemia, unspecified; H91.90 Unspecified hearing loss, unspecified ear; E11.65 Type 2 diabetes mellitus with hyperglycemia; R29.6 Repeated falls; S50.312A Abrasion of left elbow, initial encounter; I12.9 Hypertensive chronic kidney disease with stage 1 through stage 4 chronic kidney disease, or unspecified chronic kidney disease; M19.90 Unspecified osteoarthritis, unspecified site; E11.22 Type 2 diabetes mellitus with diabetic chronic kidney disease; N18.30 Chronic kidney disease, stage 3 unspecified; Z88.5 Allergy status to narcotic agent; Z88.8 Allergy status to other drugs, medicaments and biological substances; Z79.4 Long term (current) use of insulin; Z79.891 Long term (current) use of opiate analgesic; Z98.52 Vasectomy status; Z98.890 Other specified postprocedural states; Z79.899 Other long term (current) drug therapy; Z78.1 Physical restraint status; Z85.46 Personal history of malignant neoplasm of prostate; W18.30XA Fall on same level, unspecified, initial encounter
CPT/HCPCS: 0241U; 36415; 70544; 70551; 80053; 80069; 82140; 82248; 82607; 82728; 82746; 82947; 83540; 83550; 83615; 83735; 84100; 84153; 84165; 85025; 93005; 93010; 96360; 96361; 96372; 97110; 97162; 97165; 97530; 97530-CQ; 99285-25; A9270; G0378; J0630; J1650; J1815; J3010; J3480; J7030